=== PATIENT | female | born 2000 | race Caucasian/White ===

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

== ENCOUNTER 2021-01-06 16:13 | Emergency (ER) | payer BC, OTHER ==
[~2021-01-06] VITALS: Ht 157.5 cm; Wt 82.7 kg
--- NOTE | 2021-01-06 16:17 | ED Integumentary General ---
General Stated Complaint: WOUND CHECK History of Present Illness Date Seen by Provider: Jan 06, 2021 Time Seen by Provider: 16:18 Initial Comments 20-year-old female presents for wound check of tattoo site. Patient had a new tattoo put on her left inner thigh yesterday. During the procedure they had to stop because she was getting some swelling of the leg. She continues to have some moderate swelling and inflammation and tenderness to the area today. This can come down gone back up again. Patient has had previous tattoos and never had a reaction. No fevers chills or other systemic complaints Allergies and Home Medications Patient Home Medication List Home Medication List Reviewed: Yes Review of Systems Review of Systems Constitutional: no symptoms reported EENTM: no symptoms reported Respiratory: no symptoms reported Cardiovascular: no symptoms reported Gastrointestinal: no symptoms reported Genitourinary: no symptoms reported Musculoskeletal: no symptoms reported Skin: see HPI Psychiatric/Neurological: No Symptoms Reported Physical Exam Vital Signs Capillary Refill : General Appearance: WD/WN, no apparent distress Cardiovascular: normal peripheral pulses, regular rate, rhythm Respiratory: chest non-tender, lungs clear Gastrointestinal: non tender, soft Neurologic/Psychiatric: alert, normal mood/affect, oriented x 3 Skin: normal color, warm/dry, tattoos/piercings, other (Moderate reactive swelling/localized swelling around new tattoo site.) Progress/Results/Core Measures Progress Progress Note : Progress Note The swelling and tenderness edema started during the procedure. Very unlikely that infectious based on that timeframe. Most likely a localized reaction. Recommended very high quality lotion, can utilize Benadryl cream, ibuprofen. Watch closely. If it continues over the next couple days would recommend she follow-up for recheck. Departure Impression Primary Impression: Foreign body reaction to tattoo dyes Additional Impression: Tattoo reaction Disposition: HOME, SELF-CARE Condition: Stable Departure-Patient Inst. Referrals: NO,LOCAL PHYSICIAN (PCP/Family) Primary Care Physician Patient Instructions: Tattoos and Body Piercings Add. Discharge Instructions: Please monitor closely. If symptoms continue to progress over the next couple days and do not start to resolve, please follow-up with your primary care provider to have your wound rechecked. Otherwise use good skin care and wound management. Keep clean with warm soapy water use a good lotion. You may use Benadryl cream. Ibuprofen for inflammation DAT COSTA DO Jan 06, 2021 16:17
--- OUTSIDE RECORDS SUMMARY | 2021-01-06 16:17 | XMS REPORT | Clinical Summary ---
Author Author [facility] ity [facility] it Address Unknown Phone Unavailable Care Team Providers Care Rn New Graduate Name Role Phone PP Unavailable Allergies Not on File Medications Not on file Active Problems Not on file Social History Date Tobacco Use Types Packs/Day Years Used Never Assessed Sex Assigned at Date Recorded Not on file Plan of Treatment Not on file Results Not on filefrom Last 3 Months
[2021-01-06 16:29] VITALS: BP 119/79
== END 2021-01-06 16:29 | disposition home or self-care (01) ==
LOC: EDUNIT# 16:13 → ER FS 16:14
DX: L81.8 Other specified disorders of pigmentation (principal)
CPT/HCPCS: 99281

== ENCOUNTER 2021-06-09 12:26 | Emergency (ER) | payer BC ==
[~2021-06-09] VITALS: Ht 157.5 cm; Wt 87.6 kg
[2021-06-09] MEDS ORDERED: methylPREDNISolone 80 MG/ML (DEPO MEDROL) VIAL IM STA (12:38)
--- NOTE | 2021-06-09 12:42 | ED Integumentary General ---
General Chief Complaint: Skin/Wound Problems Stated Complaint: POSION RHYS ON FACE Source: patient History of Present Illness Date Seen by Provider: Jun 09, 2021 Time Seen by Provider: 12:30 Initial Comments 20-year-old female presenting with complaint of poison rhys on her face. She states that she gets this frequently at least 3 or 4 times a year. She has a outbreak on her face or body with minimal exposure to any oils or plants such as poison rhys. She states that it can be in the wound for somebody to be burning and it will cause her issues. She denies having any shortness of breath or difficulty swallowing. She has had several days of increasing swelling, blisters, itching to her lips and face. Her primary care provider is through [facility] in [place]. Timing/Duration: getting worse (Over the last several days) Severity: moderate Location: face Possible Cause: exposure to allergen (Possible poison rhys exposure) Associated Symptoms: blisters, change in skin texture; No fever, No flushing, No headache, No hives, No jaundice, No malaise, No nasal congestion, No numbness, No pallor, No paresthesia, No petechiae, No rash, No sore throat, No swelling/mass/lumps, No tingling Allergies and Home Medications Allergies Coded Allergies: No Known Drug Allergies (Unverified , 06/09/21) Patient Home Medication List Home Medication List Reviewed: Yes Review of Systems Review of Systems Constitutional: No chills, No fever EENTM: see HPI, other (Swelling itching and blisters to her lips and face) Respiratory: No cough, No short of breath, No stridor, No wheezing Cardiovascular: No edema Gastrointestinal: no symptoms reported Genitourinary: no symptoms reported Musculoskeletal: no symptoms reported Skin: see HPI Psychiatric/Neurological: No Symptoms Reported Past [id number]-Pwwxkj-Mfiini Hx Patient Social History Tobacco Use?: No Past Medical History Surgery/Hospitalization HX: 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 Surgeries: No Respiratory: No Cardiac: No Neurological: No Physical Exam Vital Signs Vital Signs - First Documented 06/09/21 12:33 Temp 36.6 Pulse 79 Resp 17 B/P (MAP) 129/91 (104) O2 Delivery Room Air Capillary Refill : General Appearance: WD/WN, no apparent distress HEENT: PERRL/EOMI, pharynx normal, other (Blisters and swelling to her lips and face) Neck: non-tender, full range of motion, supple, normal inspection Cardiovascular: normal peripheral pulses, regular rate, rhythm Respiratory: chest non-tender, lungs clear, normal breath sounds, no respiratory distress, no accessory muscle use Neurologic/Psychiatric: alert, oriented x 3 Skin: warm/dry Skin Problem Location: face Skin Problem Character: erythema, swelling, other (Blisters) Progress/Results/Core Measures Results/Orders My Orders Orders - TUTU TRACY MD Dexamethasone Injection (Decadron Inje (06/09/21 12:38) Methylprednisolone Acetate Inj (Depo-Med (06/09/21 12:38) Vital Signs/I&O 06/09/21 12:33 Temp 36.6 Pulse 79 Resp 17 B/P (MAP) 129/91 (104) O2 Delivery Room Air Progress Progress Note : Progress Note As patient reports that she has had similar symptoms with poison rhys in the past and responded to steroids will administer IM Decadron and Depo-Medrol. En couraged to use oral antihistamines. Use Vaseline or a nonirritating nonmedicated moisturizing type substance to keep her lips moist and help prevent the blisters from drying out and developing a secondary infection Departure Impression Primary Impression: Contact dermatitis due to poison rhys Additional Impression: Allergic contact dermatitis Qualified Codes: L23.9 - Allergic contact dermatitis, unspecified cause Disposition: 01 HOME, SELF-CARE Condition: Stable Departure-Patient Inst. Decision time for Depature: 12:44 Referrals: NO,LOCAL PHYSICIAN (PCP/Family) Primary Care Physician Patient Instructions: Poison Rhys, Poison [place], Poison [place] ED, Allergic R eaction ED Add. Discharge Instructions: The steroid shots from today will help with blisters, swelling and itching. You may take antihistamines such as diphenhydramine (Benadryl) or Loratadine (Claritin) to further help with swelling, blisters and itching. Use vaseline to help keep your lips moist as they heal from the blisters and irritation If you develop wheezing, trouble breathing, trouble swallowing then seek medical care for further evaluation All discharge instructions reviewed with patient and/or family. Voiced understanding. TUTU TRACY MD Jun 09, 2021 12:42
[2021-06-09 13:00] VITALS: BP 139/88
== END 2021-06-09 13:00 | disposition home or self-care (01) ==
LOC: EDUNIT# 12:26 → ER FS 12:27
DX: L23.7 Allergic contact dermatitis due to plants, except food (principal)
CPT/HCPCS: 99284